=== PATIENT | female | born 1995 | race African-American/Black ===

== ENCOUNTER 2020-02-20 18:53 | Emergency (ER) | payer MEDICAID ==
[2020-02-20] MEDS ORDERED: ONDANSETRON 4 MG TAB.RAPDIS PO ONE (20:08)
--- NOTE | 2020-02-20 20:11 | ER Document Report ---
ED Medical Screen (RME) - General Chief Complaint: Nausea/Vomiting Stated Complaint: NAUSEA/VOMITING Time Seen by Provider: 02/20/20 20:05 Primary Care Provider: WILBERT PRATER PA [Primary Care Provider] - Follow up as needed Notes: HPI: 24-year-old female presenting with 2 to 3 days of nausea vomiting. No abdominal pain. She also has a mild frontal headache. States the last time she had this she had an ectopic although she has no pelvic pain. Patient states that she had a negative rapid Covid test on Thursday. Patient states she has negative test on Thursday at home. PHYSICAL EXAMINATION: There is no abdominal pain on palpation. Lung sounds are clear to auscultation regular rate and rhythm. Patient states that if her test is negative she would like a PCR Covid test I have greeted and performed a rapid initial assessment of this patient. A comprehensive ED assessment and evaluation of the patient, analysis of test results and completion of medical decision making process will be conducted by an additional ED providers. Please note that clinical decision making for this patient was made during the 2019 pandemic of novel coronavirus which caused a significant strain on the healthcare system including at this particular facility. Criteria for admission discharge and level of care decisions as well as treatment decisions have necessarily changed Physical Exam - Vital signs Vitals: Temp Pulse Resp BP Pulse Ox 98.5 F 83 16 119/60 100 02/20/20 18:56 02/20/20 18:56 02/20/20 18:56 02/20/20 18:56 02/20/20 18:56 Course - Vital Signs Vital signs: Temp Pulse Resp BP Pulse Ox 98.5 F 83 16 119/60 100 02/20/20 18:56 02/20/20 18:56 02/20/20 18:56 02/20/20 18:56 02/20/20 18:56 Doctor's Discharge - Discharge Referrals: WILBERT PRATER PA [Primary Care Provider] - Follow up as needed
[2020-02-20 20:44] LABS: ABSOLUTE BASOPHILS # (AUTO) 0.1 10^3/uL (0.0-0.2); ABSOLUTE EOSINOPHILS # (AUTO) 0.2 10^3/uL (0.0-0.6); ABSOLUTE MONOCYTES (AUTO) 0.4 10^3/uL (0.1-1.4); BASOPHILS % (AUTO) 0.6 % (0-2); EOSINOPHILS % (AUTO) 2.3 % (0-6); HEMATOCRIT 39.8 % (36.0-47.0); HEMOGLOBIN 13.1 g/dL (12.0-15.5); LYMPHOCYTES % (AUTO) 45.7 % (13-45); MEAN CORPUSCULAR HEMOGLOBIN 27.7 pg (27.0-33.4); MEAN CORPUSCULAR HGB CONC 32.8 g/dL (32.0-36.0); MEAN CORPUSCULAR VOLUME 84 fl (80-97); MONOCYTES % (AUTO) 5.1 % (3-13); PLATELET COUNT 309 10^3/uL (150-450); RED BLOOD COUNT 4.72 10^6/uL (3.72-5.28); RED CELL DISTRIBUTION WIDTH 12.8 % (11.5-14.0); SEGMENTED NEUTROPHILS % (AUTO) 46.3 % (42-78); TOTAL CELLS COUNTED % (AUTO) 100 %; WHITE BLOOD COUNT 8.7 10^3/uL (4.0-10.5)
[2020-02-20 20:55] LABS: APPEARANCE,URINE SLIGHTLY-CLOUDY; BILIRUBIN,URINE NEGATIVE (NEGATIVE); COLOR,URINE YELLOW; GLUCOSE, URINE NEGATIVE (NEGATIVE); KETONES,URINE NEGATIVE (NEGATIVE); LEUKOCYTE ESTERASE,URINE MODERATE (NEGATIVE); NITRITE,URINE NEGATIVE (NEGATIVE); PROTEIN,URINE NEGATIVE (NEGATIVE); URINE SPECIFIC GRAVITY 1.018; UROBILINOGEN,URINE NEGATIVE mg/dL (<2.0)
[2020-02-20 20:58] LABS: ALBUMIN 4.2 g/dL (3.5-5.0); ALKALINE PHOSPHATASE 60 U/L (38-126); ANION GAP 7 (5-19); ASPARTATE AMINO TRANSFERASE 19 U/L (14-36); BILIRUBIN,DIRECT 0.2 mg/dL (0.0-0.4); BILIRUBIN,TOTAL 0.3 mg/dL (0.2-1.3); BLOOD UREA NITROGEN 7 mg/dL (7-20); CALCIUM 9.7 mg/dL (8.4-10.2); CARBON DIOXIDE 26 mmol/L (22-30); CHLORIDE 105 mmol/L (98-107); GLUCOSE 94 mg/dL (75-110); POTASSIUM 4.5 mmol/L (3.6-5.0); TOTAL PROTEIN 7.6 g/dL (6.3-8.2)
[2020-02-20] MEDS ORDERED: ACETAMINOPHEN 325 MG TABLET PO ONE (21:09)
--- NOTE | 2020-02-20 21:10 | ER Document Report ---
ED GI/ - General Chief Complaint: Nausea/Vomiting Stated Complaint: NAUSEA/VOMITING Time Seen by Provider: 02/20/20 20:05 Primary Care Provider: WILBERT PRATER PA [NO LOCAL MD] - Follow up as needed Mode of Arrival: Ambulatory Information source: Patient Notes: Patient presents complaining of nausea and vomiting for the past 10 days. Patient states she is vomited 3 times today. Patient denies any diarrhea or abdominal tenderness. Patient states she has had a headache although headache pain is improved at this time. Patient reports having a recent negative Covid test 3 days ago. Patient is concerned possibly that she may be . - HPI Patient complains to provider of: Vomiting. No: Abdominal pain Onset: Other - 10 days Timing/Duration: Better Quality of pain: No pain Pain Level: Denies Vaginal bleeding (Compared to normal period): None Associated symptoms: Nausea, Vomiting. denies: Constipation, Diarrhea, Dysuria, Fever, Urinary hesitancy, Urinary frequency, Urinary retention, Urinary urgency, Vaginal discharge Exacerbated by: Denies Relieved by: Denies Similar symptoms previously: No Recently seen / treated by doctor: No - Related Data Allergies/Adverse Reactions: No Known Allergies Allergy (Verified 02/20/20 20:12) Home Medications: zanaflex, ocycodone Past Medical History - General Information source: Patient - Social History Smoking Status: Never Smoker Frequency of alcohol use: None Drug Abuse: None Occupation: None Family History: Reviewed & Not Pertinent Musculoskeletal Medical History: Reports Hx Arthritis - Chronic back pain Past Surgical History: Reports: Hx Gynecologic Surgery Review of Systems - Review of Systems Constitutional: No symptoms reported. denies: Fever EENT: No symptoms reported Cardiovascular: No symptoms reported. denies: Chest pain Respiratory: denies: Cough, Short of breath Gastrointestinal: Nausea, Vomiting. denies: Abdominal pain, Diarrhea Genitourinary: No symptoms reported. denies: Dysuria, Flank pain Female Genitourinary: No symptoms reported. denies: Vaginal bleeding Musculoskeletal: No symptoms reported. denies: Back pain Skin: No symptoms reported Hematologic/Lymphatic: No symptoms reported Neurological/Psychological: No symptoms reported Physical Exam - Vital signs Vitals: Temp Pulse Resp BP Pulse Ox 98.5 F 83 16 119/60 100 02/20/20 18:56 02/20/20 18:56 02/20/20 18:56 02/20/20 18:56 02/20/20 18:56 - Notes Notes: PHYSICAL EXAMINATION: GENERAL: Well-appearing and in no acute distress. HEAD: Atraumatic, normocephalic. EYES: sclera anicteric, conjunctiva are normal. ENT: nares patent. Moist mucous membranes. NECK: Normal range of motion, supple without lymphadenopathy, no meningismus LUNGS: CTAB and equal. No wheezes rales or rhonchi. HEART: Regular rate and rhythm without murmurs ABDOMEN: Soft, nontender, normal bowel sounds, no guarding. EXTREMITIES: Normal range of motion, no pitting edema. No cyanosis. BACK: No midline tenderness, no step-off or deformity. No CVA tenderness NEUROLOGICAL: Cranial nerves grossly intact. Normal speech. PSYCH: Normal mood, normal affect. SKIN: Warm, Dry, normal turgor, no rashes or lesions noted Course - Re-evaluation Re-evalutation: 02/20/20 Patient reports feeling better with nausea improved. Patient without any headache pain. Patient abdomen soft nontender. Patient is requesting to be discharged at this time. Patient with negative test. Presentation of an overall well-appearing patient in no acute distress with complaints of nausea, vomiting. Patient has no abdominal tenderness on exam and specifically no tenderness in the RLQ, LLQ, RUQ. Overall well hydrated on exam. Able to tolerate oral intake here in the emergency department. Low clinical suspicion for any acute life-threatening etiology based on exam and history including acute cholecystitis, SBO, appendicitis, nephrolithiasis, or pylonephritis. CMP without evidence of acute hepatitis or significant dehydration. Will plan for discharge at this time with return precautions and followup recommendations. - Vital Signs Vital signs: Temp Pulse Resp BP Pulse Ox 99.3 F 72 16 95/64 L 99 02/20/20 22:06 02/20/20 22:06 02/20/20 22:06 02/20/20 22:06 02/20/20 22:06 - Laboratory Results Result Diagrams: 02/20/20 20:27 02/20/20 20:27 Laboratory Results Interpreted: 02/20/20 02/20/20 20:27 20:27 Lymph % (Auto) 45.7 H Ur Leukocyte Esterase MODERATE H Critical Laboratory Results Reviewed: No Critical Results - Radiology Results Critical Radiology Results Reviewed: No Critical Results Discharge - Discharge Clinical Impression: Nausea and vomiting Qualifiers: Vomiting type: unspecified Vomiting Intractability: non-intractable Qualified Code(s): R11.2 - Nausea with vomiting, unspecified Condition: Stable Disposition: HOME, SELF-CARE Instructions: Antinausea Medication ([facility]), Vomiting ([facility]) Additional Instructions: Return immediately for any new or worsening symptoms Followup with your primary care provider, call tomorrow to make a followup appointment Increase oral fluids and stay hydrated Prescriptions: Promethazine HCl [Phenergan 25 mg Tablet] 25 mg PO Q6H PRN #10 tablet PRN Reason: Referrals: WILBERT PRATER PA [NO LOCAL MD] - Follow up as needed
[2020-02-20 22:07] VITALS: BP 95/64
== END 2020-02-20 22:29 | disposition home or self-care (01) ==
LOC: ER 18:53
DX: R11.2 Nausea with vomiting, unspecified (principal)
CPT/HCPCS: 99283; 36415; 87086; 84702; 85025; 80053; 81001; J3490; S0119